=== PATIENT | female | born 1955 | race African-American/Black ===

== ENCOUNTER 2017-09-12 10:48 | Emergency (ER) | payer MEDICAID, OTHER ==
[~2017-09-12] VITALS: Ht 170.2 cm; Wt 70.0 kg
[2017-09-12] MEDS ORDERED: SODIUM CHLORIDE 0.9% 1,000 ML IV ONE (12:00)
[2017-09-12] MEDS ORDERED: KETOROLAC 30MG/ML VIAL IV STA (12:00)
[2017-09-12] MEDS ORDERED: ONDANSETRON HCL 4MG/2ML VIAL IV STA (12:00)
[2017-09-12] MEDS ORDERED: MORPHINE SULFATE 4 MG/ML CPJ (NOT FOR IM USE) IV STA (12:00)
[2017-09-12] MEDS ORDERED: CLONIDINE 0.2MG TABLET PO ONE (12:15)
[2017-09-12 12:32] LABS: BASOPHILS % 0.5 % (0.0-2.0); EOSINOPHILS % 0.1 % (0.0-5.0); HEMATOCRIT. 34.8 % (36.0-48.0); HEMOGLOBIN. 11.6 g/dL (12.0-16.0); LYMPHOCYTES % 14.5 % (20.0-50.0); MEAN CORPUSCULAR HEMOGLOBIN 31.2 pg (28.0-32.0); MEAN CORPUSCULAR VOLUME 93.6 fL (81.0-99.0); MEAN PLATELET VOLUME 8.3 fl (7.4-10.4); MONOCYTES % 9.2 % (2.0-8.0); NEUTROPHILS % 75.7 % (40.0-76.0); PLATELET 137 x1000/uL (130-400); RED BLOOD CELL COUNT 3.72 mill/uL (4.2-5.4)
[2017-09-12 12:40] LABS: INR 1.2; PARTIAL THROMBOPLASTIN TIME 27.5 sec (23.4-31.0)
[2017-09-12 12:42] LABS: CHLORIDE 100 mEq/L (98-107)
[2017-09-12] MEDS ORDERED: POTASSIUM CHLORIDE 20MEQ TABLET SR PO ONE (13:45)
[2017-09-12] MEDS ORDERED: HYDRALAZINE 20MG/ML VIAL IV ONE (15:00)
[2017-09-12] MEDS ORDERED: CLONIDINE 0.1MG TABLET PO ONE (15:00)
[2017-09-12 15:46] VITALS: BP 157/106
== END 2017-09-12 16:14 | disposition home or self-care (01) ==
LOC: ER 11:40
DX: M10.072 Idiopathic gout, left ankle and foot (principal); I10 Essential (primary) hypertension
CPT/HCPCS: 36415; 73610; 73630; 80048; 84550; 85025; 85610; 85730; 93971; 96361; 96374; 96375; 99285; J0360; J1885; J2270; J2405; J7030; Z7610

== ENCOUNTER 2017-09-12 19:52 | Emergency (ER) | payer OTHER ==
[~2017-09-12] VITALS: Ht 172.7 cm; Wt 71.0 kg
[2017-09-13] MEDS ORDERED: ONDANSETRON 4MG ODT PO ONE (03:45)
[2017-09-13] MEDS ORDERED: HYDROCODONE/ACETAMINOPHEN 5/325MG TABLET PO ONE (03:45)
[2017-09-13] MEDS ORDERED: KETOROLAC 60MG/2ML VIAL IM ONE (03:45)
[2017-09-13 05:03] VITALS: BP 166/110
== END 2017-09-13 05:05 | disposition home or self-care (01) ==
LOC: ER 19:52
DX: M10.072 Idiopathic gout, left ankle and foot (principal); I11.0 Hypertensive heart disease with heart failure; I50.9 Heart failure, unspecified; Z95.0 Presence of cardiac pacemaker
CPT/HCPCS: 96372; 99283; J1885; Q0162; Z7610

== ENCOUNTER 2018-06-06 08:15 | Emergency (ER) | payer MEDICAID, OTHER ==
[~2018-06-06] VITALS: Ht 162.6 cm; Wt 55.0 kg
[2018-06-06 08:18] VITALS: BP 130/86
[2018-06-06] MEDS ORDERED: ACETAMINOPHEN 500MG TABLET PO ONE (10:30)
== END 2018-06-06 12:13 | disposition home or self-care (01) ==
LOC: ER 08:15
DX: M25.461 Effusion, right knee (principal)
CPT/HCPCS: 73562; 99283